=== PATIENT | female | born 1970 | race Caucasian/White ===

== ENCOUNTER 2022-09-22 08:45 | Day surgery (SDC) | payer BC ==
[~2022-09-22 08:45] MED LIST: Lactated Ringers 1,000 ML IV SCH; Scopolamine 1.5 MG Transdermal Patch TOP ONE
[2022-09-22] MEDS ORDERED: Dexmedetomidine 200 MCG/2 ML SDV ONE (08:47)
[2022-09-22] MEDS ORDERED: Propofol 200 MG/20 ML SDV ONE (08:47)
[2022-09-22] MEDS ORDERED: fentaNYL 100 MCG/2 ML SDV ONE (08:47)
[2022-09-22] MEDS ORDERED: Lidocaine 2% 5 ML SDV ONE (08:54)
[2022-09-22] MEDS ORDERED: Naloxone 0.4 MG/ML SDV IVPUSH PRN (08:58)
[2022-09-22] MEDS ORDERED: fentaNYL 50 MCG/ML SDV IVPUSH PRN (08:58)
[2022-09-22] MEDS ORDERED: Metoclopramide 10 MG/2 ML SDV IVPUSH PRN (08:58)
[2022-09-22] MEDS ORDERED: HYDROmorphone 1 MG/ML Syringe IVPUSH PRN (08:58)
[2022-09-22] MEDS ORDERED: Albuterol 0.083% 2.5 MG/3 ML Neb Soln NEB PRN (08:58)
[2022-09-22] MEDS ORDERED: Ondansetron 4 MG/2 ML SDV IVPUSH PRN (08:58)
[2022-09-22] MEDS ORDERED: Morphine 2 MG/ML SYRINGE IVPUSH PRN (08:58)
[2022-09-22] MEDS ORDERED: Dexamethasone 4 MG/ML 5 ML MDV ONE (10:06)
[2022-09-22] MEDS ORDERED: Ondansetron 4 MG/2 ML SDV ONE (10:06)
[2022-09-22] MEDS ORDERED: Ketorolac 30 MG/ML SDV ONE (10:06)
[2022-09-22 10:22] LABS: CARBON DIOXIDE,CO2 22.9 mmol/L (21.0-32.0)
[2022-09-22] MEDS ORDERED: Acetaminophen/oxyCODONE 325-5 MG Tab PO PRN (10:47)
== END 2022-09-22 12:25 | disposition home or self-care (01) ==
LOC: MW.SDS 08:45
PROVIDERS: ATTEND Obstetrics & Gynecology
DX: N84.0 Polyp of corpus uteri (principal); N95.0 Postmenopausal bleeding; I10 Essential (primary) hypertension; E11.9 Type 2 diabetes mellitus without complications; J45.909 Unspecified asthma, uncomplicated; G25.81 Restless legs syndrome; F17.210 Nicotine dependence, cigarettes, uncomplicated; Z79.84 Long term (current) use of oral hypoglycemic drugs; Z79.899 Other long term (current) drug therapy; Z88.8 Allergy status to other drugs, medicaments and biological substances
CPT/HCPCS: 36415; 58563; 80053; 82947; 85027; A9270; J0131; J1100; J1885; J2405; J2704; J3010; J7120; 00952; J3490